=== PATIENT | male | born 1955 | race Caucasian/White ===

== ENCOUNTER 2017-07-27 12:06 | Emergency (ER) | payer OTHER ==
[2017-07-27] MEDS ORDERED: Aspirin 81 MG Tab.Chew PO ONE (12:39)
[2017-07-27] MEDS ORDERED: Alum Hydrox/Mag Hydrox/Simeth 30 ML, Lidocaine 2% 15 ML PO ONE ×2 (12:39)
[2017-07-27] MEDS ORDERED: Sodium Chloride 0.9% 10 ML Syringe FLUSH PRN ×2 (12:39→14:10)
--- NOTE | 2017-07-27 12:43 | EDM.PDOC ---
ED HPI GENERAL MEDICAL PROBLEM - General Chief Complaint: Chest Pain Stated Complaint: CHEST PAIN Time Seen by Provider: 07/27/17 12:21 Source of Information: Reports: Patient History Limitations: Reports: No Limitations - History of Present Illness INITIAL COMMENTS - FREE TEXT/NARRATIVE: Patient is 62-year-old male who presents to the ED complaining of tightness to his chest described as intermittent with no known provoking factors. States chest pain came on abruptly today while at work. Pain radiated to the left side of his chest no radiation to the arm, back, or neck. He didn become lightheaded with mild SOB with onset of discomfort. Currently has pain to the right side of his chest pinpoint along the sternal border states it's rated a 4 out of 10 described as being sharp in nature that goes away with relaxation. He's had no prior history of chest discomfort as such. No coronary disease no history of DVT /PE, or recent upper respiratory infections. He does have family history of 1st degree relative with heart disease. He has a history of acid reflux and states no worsening symptoms as of recent. Upon admission to the ED patient has no SOB , nausea/vomiting, diaphoresis, radiating pain, abdominal pain, pain to his lower extremities. No documented fever noted as well. Patient states he had a coronary angiogram performed 2 years ago with no coronary artery disease. In addition patient had echocardiogram completed 2015 impression: Left ventricular ejection fraction of 70-75%. An. Left ventricular relaxation with normal LV filling pressures. Mild concentric left ventricular hypertrophy. Patient has a history of hypercholesteremia and hypertension. Current medications: Lisinopril/HCTZ and lovastatin, Surgical history left knee replacement. Patient does not smoke. Utilize alcohol sporadically. Denies recreational drug use. Chest Pain Score (Numeric/FACES): 7 - Related Data Allergies Allergy/AdvReac Type Severity Reaction Status Date / Time codeine Allergy Itching Verified 07/27/17 12:10 Home Meds: Home Meds Lisinopril/Hydrochlorothiazide [Lisinopril-Hctz 20-25 mg Tab] 1 tab PO DAILY 02/05 [History] Rosuvastatin [Crestor] 5 mg PO DAILY 07/27/17 [History] Past Medical History Cardiovascular History: Reports: High Cholesterol, Hypertension - Infectious Disease History Infectious Disease History: Reports: Chicken Pox, Mumps - Past Surgical History Musculoskeletal Surgical History: Reports: Other (See Below) Other Musculoskeletal Surgeries/Procedures:: left knee replacement Social & Family History - Tobacco Use Smoking Status *Q: Former Smoker Years of Tobacco use: 20 Packs/Tins Daily: 1 Used Tobacco, but Quit: Yes Month Tobacco Last Used: 30 years ago - Caffeine Use Caffeine Use: Reports: Coffee - Recreational Drug Use Recreational Drug Use: No ED ROS GENERAL - Review of Systems Review Of Systems: ROS reveals no pertinent complaints other than HPI. ED EXAM, GENERAL - Physical Exam Exam: See Below Exam Limited By: No Limitations General Appearance: Alert, WD/WN, No Apparent Distress Ears: Hearing Grossly Normal Nose: Normal Inspection Throat/Mouth: Normal Voice, No Airway Compromise Head: Atraumatic, Normocephalic Neck: Normal Inspection, Supple Respiratory/Chest: No Respiratory Distress, Lungs Clear, Normal Breath Sounds, No Accessory Muscle Use, Other (tenderness along the 4th and 5th intercostal space 4 finger widths from the sternal border. ) Cardiovascular: Normal Peripheral Pulses, Regular Rate, Rhythm, No Murmur Peripheral Pulses: 2+: Radial (L), Radial (R), Posterior Tibial (L), Posterior Tibial (R) GI/Abdominal: Normal Bowel Sounds, Soft, Non-Tender, No Organomegaly, No Distention Extremities: Normal Inspection, Normal Range of Motion, Non-Tender, No Pedal Edema, Normal Capillary Refill Neurological: Alert, Oriented, CN II-XII Intact, Normal Cognition, No Motor/ Sensory Deficits Psychiatric: Normal Affect, Normal Mood Skin Exam: Warm, Dry, Intact, Normal Color, No Rash Course - Vital Signs Last Recorded V/S: Last Vital Signs Temp 98.7 F 07/27/17 12:12 Pulse 68 07/27/17 16:52 Resp 13 07/27/17 16:52 BP 130/72 07/27/17 16:52 Pulse Ox 98 07/27/17 16:52 - Orders/Labs/Meds Labs: Laboratory Tests 07/27/17 07/27/17 07/27/17 Range/Units 12:15 12:15 12:15 WBC 8.95 (4.23-9.07) K/mm3 RBC 5.51 (4.63-6.08) M/mm3 Hgb 15.7 (13.7-17.5) gm/L Hct 46.8 (40.1-51.0) % MCV 84.9 (79.0-92.2) fl MCH 28.5 (25.7-32.2) pg MCHC 33.5 (32.2-35.5) g/dl RDW Std Deviation 42.3 (35.1-43.9) fL Plt Count 250 (163-337) K/mm3 MPV 10.6 (9.4-12.3) fl Neut % (Auto) 69.4 H (34.0-67.9) % Lymph % (Auto) 19.8 L (21.8-53.1) % [place] % (Auto) 7.5 (5.3-12.2) % Eos % (Auto) 2.5 (0.8-7.0) Baso % (Auto) 0.4 (0.1-1.2) % Neut # (Auto) 6.21 H (1.78-5.38) K/mm3 Lymph # (Auto) 1.77 (1.32-3.57) K/mm3 [place] # (Auto) 0.67 (0.30-0.82) K/mm3 Eos # (Auto) 0.22 (0.04-0.54) K/mm3 Baso # (Auto) 0.04 (0.01-0.08) K/mm3 PT 10.6 (8.0-13.0) SECONDS INR 0.97 APTT 26 (22-36) SECONDS D-Dimer, Quantitative 1.25 H (0.19-0.59) mg/L Sodium 138 (136-145) mEq/L Potassium 4.0 (3.5-5.1) mEq/L Chloride 102 (98-107) mEq/L Carbon Dioxide 28 (21-32) mEq/L Anion Gap 12.0 (5-15) BUN 20 H (7-18) mg/dL Creatinine 1.0 (0.7-1.3) mg/dL Est Cr Clr Drug Dosing 74.10 mL/min Estimated GFR (MDRD) > 60 (>60) mL/min BUN/Creatinine Ratio 20.0 H (14-18) Glucose 115 (80-115) mg/dL Calcium 10.2 H (8.5-10.1) mg/dL Total Bilirubin 0.8 (0.2-1.0) mg/dL AST 17 (15-37) U/L ALT 35 (16-63) U/L Alkaline Phosphatase 72 (46-116) U/L Troponin I < 0.017 (0.00-0.056) ng/mL C-Reactive Protein < 0.2 (<1.0) mg/dL Total Protein 7.4 (6.4-8.2) g/dl Albumin 4.1 (3.4-5.0) g/dl Globulin 3.3 gm/dL Albumin/Globulin Ratio 1.2 (1-2) Lipase 153 (73-393) U/L TSH 3rd Generation (0.358-3.74) uIU/mL 07/27/17 07/27/17 Range/Units 12:15 15:35 WBC (4.23-9.07) K/mm3 RBC (4.63-6.08) M/mm3 Hgb (13.7-17.5) gm/L Hct (40.1-51.0) % MCV (79.0-92.2) fl MCH (25.7-32.2) pg MCHC (32.2-35.5) g/dl RDW Std Deviation (35.1-43.9) fL Plt Count (163-337) K/mm3 MPV (9.4-12.3) fl Neut % (Auto) (34.0-67.9) % Lymph % (Auto) (21.8-53.1) % [place] % (Auto) (5.3-12.2) % Eos % (Auto) (0.8-7.0) Baso % (Auto) (0.1-1.2) % Neut # (Auto) (1.78-5.38) K/mm3 Lymph # (Auto) (1.32-3.57) K/mm3 [place] # (Auto) (0.30-0.82) K/mm3 Eos # (Auto) (0.04-0.54) K/mm3 Baso # (Auto) (0.01-0.08) K/mm3 PT (8.0-13.0) SECONDS INR APTT (22-36) SECONDS D-Dimer, Quantitative (0.19-0.59) mg/L Sodium (136-145) mEq/L Potassium (3.5-5.1) mEq/L Chloride (98-107) mEq/L Carbon Dioxide (21-32) mEq/L Anion Gap (5-15) BUN (7-18) mg/dL Creatinine (0.7-1.3) mg/dL Est Cr Clr Drug Dosing mL/min Estimated GFR (MDRD) (>60) mL/min BUN/Creatinine Ratio (14-18) Glucose (80-115) mg/dL Calcium (8.5-10.1) mg/dL Total Bilirubin (0.2-1.0) mg/dL AST (15-37) U/L ALT (16-63) U/L Alkaline Phosphatase (46-116) U/L Troponin I < 0.017 (0.00-0.056) ng/mL C-Reactive Protein (<1.0) mg/dL Total Protein (6.4-8.2) g/dl Albumin (3.4-5.0) g/dl Globulin gm/dL Albumin/Globulin Ratio (1-2) Lipase (73-393) U/L TSH 3rd Generation 2.153 (0.358-3.74) uIU/mL Meds: Medications Discontinued Medications Generic Name Dose Route Start Last Admin Trade Name Freq PRN Reason Stop Dose Admin Aspirin 324 mg 07/27/17 12:39 07/27/17 12:43 Aspirin PO 07/27/17 12:40 324 mg ONETIME ONE Administration Al Hydroxide/Mg Hydroxide 30 0 ml 07/27/17 12:39 07/27/17 12:44 ml/ Lidocaine HCl 15 ml PO 07/27/17 12:40 45 ml ONETIME ONE Administration Sodium Chloride 100 mls @ 65 mls/hr 07/27/17 14:15 07/27/17 14:15 Normal Saline IV 65 mls/hr ASDIRECTED QUOC Administration Iopamidol 100 ml 07/27/17 14:10 07/27/17 14:15 Isovue-370 (76%) IVPUSH 07/27/17 14:11 100 ml ONETIME ONE Administration Sodium Chloride 10 ml 07/27/17 12:39 07/27/17 12:45 Saline Flush FLUSH 10 ml ASDIRECTED PRN Administration Keep Vein Open Sodium Chloride 10 ml 07/27/17 14:10 07/27/17 14:15 Saline Flush FLUSH 10 ml ONETIME PRN Administration IV FLUSH - Re-Assessments/Exams Free Text/Narrative Re-Assessment/Exam: IV established. Administered aspirin 324 mg by mouth and GI cocktail. Initial labs and studies include CBC, chem 14, d-dimer, CRP, PTT/INR, PTT, lipase, TSH, troponin, chest x-ray one view, and EKG. Patient's having intermittent pain to the right side of his chest 3 out of 10 sharp in nature worsened with palpation and taking deep breath relieved with relaxing. Vital signs are stable. He does have first-degree relatives with heart disease. EKG sinus rhythm at a rate of [address] changes noted. D-dimer elevated 1.25. Awaiting for additional lab work to be completed before ordering additional testing. Chest x-ray reviewed: Nothing acute is identified a portable chest x-ray. Labs reviewed: CBC essentially normal. D-dimer elevated 1.25. Chemistry panel essentially normal. Creatinine 1.0. Troponin less than 0.017. CRP less than 0.2. Lipase 153. Ordered CT of the chest PE protocol and 2nd troponin to be obtained in 3 hrs from previous blood draw. CT chest impression: Ground glass appearance within both lung bases as noted above. No findings of pulmonary embolism are seen. Other incidental findings as noted above. 16:17 2nd troponin was negative. Will discharge patient home with instructions as documented. He remains pain-free. Departure - Departure Time of Disposition: 16:17 Disposition: Home, Self-Care 01 Condition: Good Clinical Impression: Atypical chest pain Instructions: Nonspecific Chest Pain Referrals: Kita Santa NP [Primary Care Provider] - Forms: ED Department Discharge, ED Return to Work/School Form Additional Instructions: As discussed CT of the chest did not reveal a PE. EKG and additional labs did not reveal any concerning findings. Unclear etiology of current complaint. CT of the chest did reveal groundglass appearance within both lung bases with multiple potential etiologies. At this point do believe it safe sending home with instructions to follow-up with your primary care provider next week. Continue taking all your home medications as prescribed. Return to the ED if he developed any new or worsening symptoms.
--- NOTE | 2017-07-27 13:12 | CR ---
Chest: Portable view of the chest was obtained. Comparison: No prior chest x-ray. Heart size and mediastinum are normal. Lungs are clear. Bony structures are grossly intact. Impression: 1. Nothing acute is identified on portable chest x-ray. Diagnostic code #1
[2017-07-27] MEDS ORDERED: Iopamidol 755 Mg/ML 100 ML Bottle IVPUSH ONE (14:10)
[2017-07-27] MEDS ORDERED: Sodium Chloride 0.9% 100 ML IV SCH (14:15)
--- NOTE | 2017-07-27 14:40 | CT ---
CT chest Technique: Multiple axial sections through the chest were obtained. Intravenous contrast was utilized. Study performed as a pulmonary angiogram protocol. Findings: Pulmonary arteries are well-opacified. No filling defects are seen to indicate pulmonary embolism. Mild coronary artery calcification is seen. No pericardial thickening is seen. Cyst is noted off the left kidney measuring 2.9 cm. Mediastinum and hilar regions show no adenopathy or mass. No axillary adenopathy is seen. Mild groundglass appearance identified within both lower lungs which can represent changes of infectious pneumonitis, pulmonary vascular congestion as well as fibrosis. Lungs otherwise are clear. Bone window settings were reviewed which shows scattered degenerative endplate spurring within the spine. Impression: 1. Groundglass appearance within both lung bases as noted above. 2. No findings of pulmonary embolism are seen. 3. Other incidental findings as noted above. Diagnostic code #3
[2017-07-27 16:52] VITALS: BP 130/72
== END 2017-07-27 16:52 | disposition home or self-care (01) ==
LOC: JD.ED 12:06
DX: R07.89 Other chest pain (principal); E78.00 Pure hypercholesterolemia, unspecified; I10 Essential (primary) hypertension; Z88.5 Allergy status to narcotic agent; Z79.899 Other long term (current) drug therapy; Z87.891 Personal history of nicotine dependence
CPT/HCPCS: 36415; 71010; 71275; 80053; 83690; 84443; 84484; 85025; 85379; 85610; 85730; 86140; 93005; 99285; A9270; J7030; J7050; Q9967; 93010

== ENCOUNTER 2020-12-27 15:09 | Emergency (ER) | payer BC ==
[2020-12-27] MEDS ORDERED: Sodium Chloride 0.9% 10 ML Syringe FLUSH PRN (15:22)
--- NOTE | 2020-12-27 15:32 | EDM.PDOC ---
ED HPI GENERAL MEDICAL PROBLEM - General Chief Complaint: Chest Pain Stated Complaint: CHEST PAIN Time Seen by Provider: 12/27/20 15:12 Source of Information: Reports: Patient History Limitations: Reports: No Limitations - History of Present Illness INITIAL COMMENTS - FREE TEXT/NARRATIVE: 65-year-old male presents to the emergency department today with complaints of chest pain intermittently over the past 8 days. The patient states that he noticed this about 8 days ago when he be ambulating he developed chest pain and then when he would rest the pain would go away. He denies any significant cardiac history. He does have a history of hypertension. He states his primary care physician is Dr. Hammer. He states that he was seen by Dr. Hammer 3 days ago for the similar complaint and had an EKG and an echocardiogram completed at that time. He states that he was then referred to cardiology as they could not find any acute etiology for the chest pain. Patient states that this morning he woke and felt pretty good but then was carrying a couple of buckets and developed the chest pain again. He states that the pain is midsternal and sometimes radiates to the right side of his chest. He denies any nausea or diaphoresis or shortness of breath associated with this chest discomfort. He states he does feel fluttering on the left side of his chest when he develops the chest pain. He also states that today he noticed he had some discomfort down his left forearm associated with the chest pain. At the time of ER triage, he was denying any complaints of chest pain or discomfort. He denies any recent fever, chills, nausea, vomiting or diarrhea. Mid-Sternal Chest Pain Score (Numeric/FACES): 8 - Related Data Allergies Allergy/AdvReac Type Severity Reaction Status Date / Time codeine Allergy Itching Verified 12/27/20 15:31 Home Meds: Home Meds Lisinopril/Hydrochlorothiazide [Lisinopril-Hctz 20-25 mg Tab] 1 tab PO DAILY 07/27/17 [History] Rosuvastatin [Crestor] 5 mg PO DAILY 07/27/17 [History] Diclofenac Sodium [Diclofenac Sodium ER] 75 mg PO BID 12/27/20 [History] Tamsulosin [Tamsulosin 24 Hr] 0.4 mg PO DAILY 12/27/20 [History] Past Medical History Cardiovascular History: Reports: High Cholesterol, Hypertension - Infectious Disease History Infectious Disease History: Reports: Chicken Pox, Mumps - Past Surgical History Musculoskeletal Surgical History: Reports: Other (See Below) Other Musculoskeletal Surgeries/Procedures:: left knee replacement Social & Family History - Caffeine Use Caffeine Use: Reports: Coffee ED ROS GENERAL - Review of Systems Review Of Systems: Comprehensive ROS is negative, except as noted in HPI. ED EXAM, GENERAL - Physical Exam Exam: See Below Exam Limited By: No Limitations General Appearance: Alert, WD/WN, No Apparent Distress Ears: Normal External Exam, Hearing Grossly Normal Nose: Normal Inspection Throat/Mouth: Normal Inspection, Normal Lips, Normal Voice, No Airway Compromise Head: Atraumatic Neck: Normal Inspection, Supple Respiratory/Chest: No Respiratory Distress, Lungs Clear, Normal Breath Sounds, No Accessory Muscle Use, Chest Non-Tender Cardiovascular: Normal Peripheral Pulses, Regular Rate, Rhythm, No Edema, No Murmur Peripheral Pulses: 2+: Radial (L), Radial (R) GI/Abdominal: Normal Bowel Sounds, Soft, Non-Tender, No Distention (Male) Exam: Deferred Rectal (Males) Exam: Deferred Back Exam: Normal Inspection, Full Range of Motion Extremities: Normal Inspection, Normal Range of Motion, Non-Tender, No Pedal Edema, Normal Capillary Refill Neurological: Alert, Oriented, Normal Cognition Psychiatric: Normal Affect, Normal Mood Skin Exam: Warm, Dry, Intact, Normal Color, No Rash Lymphatic: No Adenopathy #1 Interpretation EKG Date: 12/27/20 Time: 15:19 Rhythm: NSR Rate (Beats/Min): 82 [place]: Normal P-Wave: Present QRS: Normal ST-T: Depressed QT: Normal Comparison: NA - No Prior EKG EKG Interpretation Comments: Per Dr. Quintanilla interpretation: Normal sinus rhythm at a rate of 82 bpm; very minimal ST depression V2 through V6 Course - Vital Signs Text/Narrative:: Patient presents with complaints of chest pain that he has had intermittently over the past 8 days. Was recently seen by his primary care provider 3 days ago to evaluate this complaint. He reports that he had an EKG and an echocardiogram completed at that time and was then referred to cardiology. Carries a history of hypertension. Denies any history of [place]. History of smoking 20 years ago. States he drinks 2 beers per week. Denies any d iaphoresis or nausea associated with the chest pain. He states that he does note some radiation down his left forearm and has palpitations to the left side of his chest. I have ordered labs, EKG, and a chest x-ray on this patient. Last Recorded V/S: Last Vital Signs Temp 97.5 F 12/27/20 15:37 Pulse 79 12/27/20 15:37 Resp 13 12/27/20 15:37 BP 181/92 H 12/27/20 15:37 Pulse Ox 100 12/27/20 15:37 - Orders/Labs/Meds Orders: Active Orders 24 hr Category Date Time Status EKG Documentation Completion [RC] STAT Care 12/27/20 15:22 Active Chest 1V Frontal [CR] Stat Exams 12/27/20 15:22 Taken CBC W/O DIFF,HEMOGRAM [HEME] MOTH@0700 Lab 12/29/20 07:00 Ordered CBC W/O DIFF,HEMOGRAM [HEME] MOTH@0700 Lab 01/01/21 07:00 Ordered CBC W/O DIFF,HEMOGRAM [HEME] MOTH@0700 Lab 01/05/21 07:00 Ordered CBC W/O DIFF,HEMOGRAM [HEME] MOTH@0700 Lab 01/08/21 07:00 Ordered CBC W/O DIFF,HEMOGRAM [HEME] MOTH@0700 Lab 01/12/21 07:00 Ordered CBC W/O DIFF,HEMOGRAM [HEME] MOTH@0700 Lab 01/15/21 07:00 Ordered Heparin Sodium/D5W [Heparin 25,000 Units in D5W 500 ML] Med 12/27/20 16:30 Ac tive 25,000 units in 500 ml IV TITRATE Sodium Chloride 0.9% [Saline Flush] Med 12/27/20 15:22 Active 10 ml FLUSH ASDIRECTED PRN Saline Lock Insert [OM.PC] Stat Oth 12/27/20 15:22 Ordered Medication Orders Heparin Sodium/Dextrose (Heparin 25,000 Units In D5w 500 Ml) 25,000 units in 500 mls @ 20 mls/hr IV TITRATE [facility]; Protocol Last Admin: 12/27/20 16:43 Dose: 1,000 units/hr, 20 mls/hr Documented by: TYREL Cosigned by: ALINE Sodium Chloride (Sodium Chloride 0.9% 10 Ml Syringe) 10 ml FLUSH ASDIRECTED PRN PRN Reason: Keep Vein Open Last Admin: 12/27/20 15:55 Dose: 10 ml Documented by: TYREL Labs: Laboratory Tests 12/27/20 12/27/20 12/27/20 Range/Units 15:25 15:25 16:55 WBC 8.30 (4.23-9.07) K/mm3 RBC 4.53 L (4.63-6.08) M/mm3 Hgb 12.5 L D (13.7-17.5) gm/dl Hct 38.9 L (40.1-51.0) % MCV 85.9 (79.0-92.2) fl MCH 27.6 (25.7-32.2) pg MCHC 32.1 L (32.2-35.5) g/dl RDW Std Deviation 44.2 H (35.1-43.9) fL Plt Count 336 D (163-337) K/mm3 MPV 9.4 (9.4-12.3) fl Neut % (Auto) 62.9 (34.0-67.9) % Lymph % (Auto) 21.6 L (21.8-53.1) % [place] % (Auto) 9.9 (5.3-12.2) % Eos % (Auto) 4.1 (0.8-7.0) Baso % (Auto) 0.5 (0.1-1.2) % Neut # (Auto) 5.23 (1.78-5.38) K/mm3 Lymph # (Auto) 1.79 (1.32-3.57) K/mm3 [place] # (Auto) 0.82 (0.30-0.82) K/mm3 Eos # (Auto) 0.34 (0.04-0.54) K/mm3 Baso # (Auto) 0.04 (0.01-0.08) K/mm3 Sodium 140 (136-145) mEq/L Potassium 3.8 (3.5-5.1) mEq/L Chloride 102 (98-107) mEq/L Carbon Dioxide 28 (21-32) mEq/L Anion Gap 13.8 (5-15) BUN 17 (7-18) mg/dL Creatinine 1.1 (0.7-1.3) mg/dL Est Cr Clr Drug Dosing 111.25 mL/min Estimated GFR (MDRD) > 60 (>60) mL/min BUN/Creatinine Ratio 15.5 (14-18) Glucose 115 (80-115) mg/dL Calcium 9.8 (8.5-10.1) mg/dL Magnesium 2.2 (1.8-2.4) mg/dl Total Bilirubin 0.3 (0.2-1.0) mg/dL AST 14 L (15-37) U/L ALT 34 (16-63) U/L Alkaline Phosphatase 88 (46-116) U/L Troponin I 0.127 H* (0.00-0.056) ng/mL Total Protein 7.3 (6.4-8.2) g/dl Albumin 3.9 (3.4-5.0) g/dl Globulin 3.4 gm/dL Albumin/Globulin Ratio 1.2 (1-2) SARS-CoV-2 RNA (DEZ) Negative (NEGATIVE) Meds: Medications Generic Name Dose Route Start Last Admin Trade Name Fer PRN Reason Stop Dose Admin Heparin Sodium/Dextrose 25,000 units in 500 mls @ 20 mls/hr 12/27/20 16:30 12/27/20 16:43 Heparin 25,000 Units In D5w 500 Ml IV 1,000 units/hr TITRATE QUOC 20 mls/hr Administration Protocol 1,000 UNITS/HR Sodium Chloride 10 ml 12/27/20 15:22 12/27/20 15:55 Sodium Chloride 0.9% 10 Ml Syringe FLUSH 10 ml ASDIRECTED PRN Administration Keep Vein Open Discontinued Medications Generic Name Dose Route Start Last Admin Trade Name Fer PRN Reason Stop Dose Admin Aspirin 324 mg 12/27/20 16:17 12/27/20 16:37 Aspirin 81 Mg Tab.Chew PO 12/27/20 16:18 324 mg ONETIME ONE Administration Heparin Sodium (Porcine) 4,000 units 12/27/20 16:30 12/27/20 16:43 Heparin Sodium 5,000 Units/Ml Vial IVPUSH 12/27/20 16:31 4,000 units .BOLUS ONE Administration Protocol Nitroglycerin 1 gm 12/27/20 17:26 12/27/20 17:32 Nitroglycerin 2% Oint 1 Gm Ud Packet TOP 12/27/20 17:27 1 gm ONETIME ONE Administration - Re-Assessments/Exams Free Text/Narrative Re-Assessment/Exam: 12/27/20 16:47 Hematology reveals a WBC of 8.30, hemoglobin 12.5, hematocrit 38.9 Chemistry reveals a sodium of 140, potassium 3.8, anion gap 13.8, BUN 17, creatinine 1.1, glucose 115, magnesium 2.2, AST 14, ALT 34, troponin 0 0.127 Nothing acute is appreciated on portable view of the chest. Official radiology report is pending. I have ordered 324mg baby aspirin for the patient I called [facility] in [place] and spoke with the hospitalist Dr. Peters, and he has accepted this patient in transport as a non-STEMI. He requested that we give the patient a heparin bolus and started heparin drip per non-STEMI protocol. The patient is not currently having chest pain so he recommends that the patient receive nitroglycerin paste during transport should he develop chest pain. I have discussed this with the patient and he does agree to transport. Departure - Departure Time of Disposition: 17:42 Disposition: DC/Tfer to [facility] 02 Reason for Transfer *Q: Primary PCI Indicated Condition: Fair Clinical Impression: Non-STEMI (non-ST elevated myocardial infarction) Referrals: Oswaldo Banks MD [Primary Care Provider] - Forms: ED Department Discharge Sepsis Event Note (ED) - Focused Exam Vital Signs: Vital Signs Temp Pulse Resp BP Pulse Ox 12/27/20 15:37 97.5 F 79 13 181/92 H 100 - My Orders Last 24 Hours: My Active Orders 12/27/20 15:22 EKG Documentation Completion [RC] STAT Chest 1V Frontal [CR] Stat Sodium Chloride 0.9% [Saline Flush] 10 ml FLUSH ASDIRECTED PRN Saline Lock Insert [OM.PC] Stat 12/27/20 16:30 Heparin Sodium/D5W [Heparin 25,000 Units in D5W 500 ML] 25,000 units in 500 ml IV TITRATE 12/29/20 07:00 CBC W/O DIFF,HEMOGRAM [HEME] MOTH@0700 01/01/21 07:00 CBC W/O DIFF,HEMOGRAM [HEME] MOTH@0700 01/05/21 07:00 CBC W/O DIFF,HEMOGRAM [HEME] MOTH@0700 01/08/21 07:00 CBC W/O DIFF,HEMOGRAM [HEME] MOTH@69901/12/21 07:00 CBC W/O DIFF,HEMOGRAM [HEME] MOTH@69901/15/21 07:00 CBC W/O DIFF,HEMOGRAM [HEME] MOTH@699 - Assessment/Plan Last 24 Hours: My Active Orders 12/27/20 15:22 EKG Documentation Completion [RC] STAT Chest 1V Frontal [CR] Stat Sodium Chloride 0.9% [Saline Flush] 10 ml FLUSH ASDIRECTED PRN Saline Lock Insert [OM.PC] Stat 12/27/20 16:30 Heparin Sodium/D5W [Heparin 25,000 Units in D5W 500 ML] 25,000 units in 500 ml IV TITRATE 12/29/20 07:00 CBC W/O DIFF,HEMOGRAM [HEME] MOTH@69901/01/21 07:00 CBC W/O DIFF,HEMOGRAM [HEME] MOTH@69901/05/21 07:00 CBC W/O DIFF,HEMOGRAM [HEME] MOTH@69901/08/21 07:00 CBC W/O DIFF,HEMOGRAM [HEME] MOTH@69901/12/21 07:00 CBC W/O DIFF,HEMOGRAM [HEME] MOTH@69901/15/21 07:00 CBC W/O DIFF,HEMOGRAM [HEME] MOTH@699
[2020-12-27 15:45] VITALS: BP 181/92; PULSE 79
[2020-12-27] MEDS ORDERED: Aspirin 81 MG Tab.Chew PO ONE (16:17)
[2020-12-27] MEDS ORDERED: Heparin Sodium/D5W 25,000 UNITS/500 ML BAG IV SCH (16:30)
[2020-12-27] MEDS ORDERED: Heparin Sodium 5,000 Units/ML Vial IVPUSH ONE (16:30)
[2020-12-27] MEDS ORDERED: Nitroglycerin 2% Oint 1 GM UD Packet TOP ONE (17:26)
--- NOTE | 2020-12-28 09:11 | CR ---
Chest: Portable view of the chest was obtained. Comparison: Prior chest x-ray of 07/27/17. Heart size and mediastinum are normal. Lungs show no acute parenchymal change. Bony structures show nothing acute. Impression: 1. Nothing acute is appreciated on portable chest x-ray. Diagnostic code #1
== END 2020-12-27 17:45 ==
LOC: JD.ED 15:09
DX: I21.4 Non-ST elevation (NSTEMI) myocardial infarction (principal); E78.00 Pure hypercholesterolemia, unspecified; I10 Essential (primary) hypertension; Z88.5 Allergy status to narcotic agent; Z79.899 Other long term (current) drug therapy; Z20.822 Contact with and (suspected) exposure to COVID-19
CPT/HCPCS: 36415; 71045; 80053; 83735; 84484; 85025; 87635; 93005; 96365; 99285; A9270; J1644; 93010; 99284; U0002

== ENCOUNTER 2021-07-15 07:09 | Day surgery (SDC) | payer BC ==
[~2021-07-15 07:09] MED LIST: Lactated Ringers 1,000 ML IV SCH; Lidocaine 1%/Sod Bicarbonate in NS 8.4% 1 ML Syringe IDERM PRN; Sodium Chloride 0.9% 10 ML Syringe FLUSH PRN
[2021-07-15] MEDS ORDERED: Bupivacaine 0.5% 10 ML SDV ONE (07:47)
[2021-07-15] MEDS ORDERED: Bacitracin Oint 15 GM Tube ONE (08:58)
[2021-07-15 09:17] VITALS: BP 132/64; PULSE 70
--- NOTE | 2021-07-15 09:59 | PCM.PRNOTE ---
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 Time out was performed. The scar from prior excisional biopsy at the left chin was prepped and draped in sterile fashion. 8 cc 0.5% marcaine with epinephrine was injected at the site for local anesthetic. A transversely oriented ellipse of skin encompassing the scar from prior excision was removed using a 15 blade scalpel, measuring approximately 2 x 0.5 cm. Excision was taken down to the level of subcutaneous fat. The specimen was oriented with a short stitch superiorly and long stitch laterally, and sent for frozen section analysis. The wound bled a fair amount; the patient was on antiplatelet medication for history of myocardial infarction. Hemostasis was achieved with electrocautery and surgicell mesh. The wound was closed with several simplle interrupted 5-0 prolene sutures. The wound was hemostatic after closure. Bacitracin and a band- aid were applied for dressing. The patient tolerated the procedure well.
== END 2021-07-15 09:55 | disposition home or self-care (01) ==
LOC: JD.SDS 07:09
PROVIDERS: ATTEND Surgery
DX: C44.319 Basal cell carcinoma of skin of other parts of face (principal); F41.9 Anxiety disorder, unspecified; N40.0 Benign prostatic hyperplasia without lower urinary tract symptoms; I50.9 Heart failure, unspecified; I25.10 Atherosclerotic heart disease of native coronary artery without angina pectoris; I11.0 Hypertensive heart disease with heart failure; E78.00 Pure hypercholesterolemia, unspecified; K21.9 Gastro-esophageal reflux disease without esophagitis; E11.9 Type 2 diabetes mellitus without complications; E66.9 Obesity, unspecified; I25.2 Old myocardial infarction; Z98.890 Other specified postprocedural states; Z87.891 Personal history of nicotine dependence; Z88.5 Allergy status to narcotic agent; Z79.82 Long term (current) use of aspirin; Z79.899 Other long term (current) drug therapy; Z79.84 Long term (current) use of oral hypoglycemic drugs; Z68.37 Body mass index [BMI] 37.0-37.9, adult
CPT/HCPCS: 88305; A9270-GY; J3490

== ENCOUNTER 2024-03-12 19:34 | Emergency (ER) | payer BC ==
[2024-03-12] MEDS ORDERED: Sodium Chloride 0.9% 10 ML Syringe FLUSH PRN (20:08)
[2024-03-12] MEDS: Sodium Chloride 0.9% 500 ML IV ONE (20:22)
[2024-03-12] MEDS: HYDROmorphone 1 MG/ML Syringe IVPUSH ONE ×2 (20:22→22:30)
[2024-03-12 20:26] LABS: BASOPHILS ABSOLUTE AUTO 0.1 K/mm3 (0.0-0.2); BASOPHILS PERCENT AUTO 0.4 % (0.0-1.0); EOSINOPHILS ABSOLUTE AUTO 0.6 K/mm3 (0.0-0.4); EOSINOPHILS PERCENT AUTO 3.2 % (0.0-6.0); HEMATOCRIT 35.3 % (42.0-52.0); HEMOGLOBIN 11.3 gm/dl (14.0-18.0); IMMATURE GRAN PERCENT AUTO 1.1 % (0.0-0.4); LYMPHOCYTES ABSOLUTE AUTO 1.1 K/mm3 (1.0-4.8); LYMPHOCYTES PERCENT AUTO 5.9 % (24.0-44.0); MEAN CORPUSCULAR HEMOGLOBIN 28.3 pg (28.0-32.0); MEAN CORPUSCULAR VOLUME 88.3 fl (83.0-99.0); MONOCYTES ABSOLUTE AUTO 1.5 K/mm3 (0.0-0.8); MONOCYTES PERCENT AUTO 8.1 % (0.0-8.0); NEUTROPHILS ABSOLUTE AUTO 15.1 K/mm3 (1.8-7.7); NEUTROPHILS PERCENT AUTO 81.3 % (41.0-71.0); PLATELET COUNT,PLT 409 K/mm3 (150-400)
[2024-03-12 20:32] LABS: A/G RATIO 0.7 (1-2); ALANINE AMINOTRANSFERASE,ALT 40 U/L (16-63); ALBUMIN 2.8 g/dl (3.4-5.0); ALKALINE PHOSPHATASE 83 U/L (46-116); ANION GAP 12.9 (5-15); ASPARTATE AMNIOTRANSFERASE,AST 18 U/L (15-37); BILIRUBIN TOTAL 0.8 mg/dL (0.2-1.0); BLOOD UREA NITROGEN,BUN 14 mg/dL (7-18); BUN/CREATININE RATIO 12.7 (14-18); CALCIUM 10.1 mg/dL (8.5-10.1); CARBON DIOXIDE,CO2 27 mEq/L (21-32); CHLORIDE,CL 102 mEq/L (98-107); CREATININE 1.1 mg/dL (0.7-1.3); ESTIMATED GFR 73 mL/min (>60); GLUCOSE RANDOM 155 mg/dL (70-99); LIPASE 56 U/L (16-77); POTASSIUM,K 3.9 mEq/L (3.5-5.1); PROTEIN TOTAL,TP 6.9 g/dl (6.4-8.2); SODIUM,NA 138 mEq/L (136-145)
[2024-03-12] MEDS: Sodium Chloride 0.9% 10 ML Syringe FLUSH ONE (20:39)
[2024-03-12] MEDS: Iopamidol 612 MG/ML 100 ML Bottle IVPUSH ONE (21:07)
[2024-03-12 22:27] LABS: APPEARANCE,URINE CLEAR (Clear); BILIRUBIN,URINE NEGATIVE (Negative); COLOR,URINE YELLOW (Yellow); GLUCOSE,URINE NEGATIVE (Negative); KETONES,URINE NEGATIVE (Negative); LEUKOCYTE ESTERASE,URINE NEGATIVE (Negative); NITRITE,URINE NEGATIVE (Negative); OCCULT BLOOD,URINE NEGATIVE (Negative); PH,URINE 5.5 (5.0-8.0); PROTEIN,URINE TRACE (Negative)
[2024-03-12 22:38] LABS: BACTERIA,URINE RARE /hpf (FEW); EPITHELIAL CELLS,URINE 0-5 /hpf (0-5); MUCUS,URINE RARE /hpf (FEW); RBC,URINE NOT SEEN /hpf (0-5); WBC,URINE 0-5 /hpf (0-5)
[2024-03-12 23:12] VITALS: PULSE 88
[2024-03-13 00:17] VITALS: BP 135/84
== END 2024-03-13 00:24 | disposition home or self-care (01) ==
LOC: JD.ED 19:34
DX: R10.11 Right upper quadrant pain (principal); I10 Essential (primary) hypertension; E78.00 Pure hypercholesterolemia, unspecified; E11.9 Type 2 diabetes mellitus without complications; Z86.16 Personal history of COVID-19; Z79.899 Other long term (current) drug therapy; Z88.5 Allergy status to narcotic agent
CPT/HCPCS: 36415; 74177; 76705; 80053; 81001; 83690; 83735; 85025; 93005; 93971; 96361; 96374; 96376; 99284; J1170; J7030; Q9967